=== PATIENT | female | born 1980 | race Caucasian/White ===

== ENCOUNTER 2022-09-10 14:11 | Emergency (ER) | payer BC, OTHER ==
[2022-09-10] MEDS ORDERED: HYDROCODONE/APAP 5/325 MG TAB ONE (14:39)
--- NOTE | 2022-09-10 15:36 | RAD REPORT ---
EXAM DESCRIPTION: RAD - Foot Right 3 View - 09/10/2022 3:13 pm CLINICAL HISTORY: PAIN COMPARISON: No comparisons FINDINGS/IMPRESSION: No acute fracture. No malalignment. No significant focal degenerative changes.
--- NOTE | 2022-09-10 15:39 | EDPHYS ---
Physician Documentation [facility] Name: Angelica Richards Age: 41 yrs Sex: Female : 1980 Arrival Date: 09/10/2022 Time: 14:13 Bed 23 Private MD: ED Physician Taj Turner HPI: 09/10 14:31 This 41 yrs old Female presents to ER via Wheelchair with complaints of Foot Pain. kb 14:32 The patient presents with decreased range of motion, pain, swelling, tenderness. The kb complaints affect the right foot. Context: The problem was sustained at home, resulted from twisted while surfing, the patient can partially bear weight, must have assistance. Onset: The symptoms/episode began/occurred just prior to arrival. Modifying factors: The symptoms are alleviated by nothing, the symptoms are aggravated by weight bearing, movement. Associated signs and symptoms: Pertinent positives: swelling, Pertinent negatives: calf tenderness, fever, nausea, numbness, rash, tingling, vomiting, warmth, weakness. Severity of symptoms: At their worst the symptoms were moderate, in the emergency department the symptoms are unchanged. The patient has not experienced similar symptoms in the past. The patient has not recently seen a physician. Pt reports her foot was stuck to her surfboard that got caught by the wind causing it to twist her foot. c/o pain to right foot. Historical: - Allergies: 14:22 No Known Allergies; kb3 - Home Meds: 14:22 None [Active]; kb3 - PMHx: 14:22 None; kb3 - PSHx: 14:22 None; kb3 - Immunization history:: Adult Immunizations up to date, Client reports receiving the 2nd dose of the Covid vaccine, Last tetanus immunization: up to date. - Social history:: Smoking status: Patient denies any tobacco usage or history of. ROS: 14:30 Constitutional: Negative for fever, chills, and weight loss. kb 14:30 MS/extremity: Positive for pain, of the dorsum of right foot. 14:30 All other systems are negative. Exam: 14:30 Constitutional: This is a well developed, well nourished patient who is awake, alert, kb and in no acute distress. Head/Face: Normocephalic, atraumatic. ENT: Moist Mucous membranes Cardiovascular: Regular rate and rhythm with a normal S1 and S2. No gallops, murmurs, or rubs. No pulse deficits. Respiratory: Respirations even and unlabored. No increased work of breathing. Talking in full sentences Skin: Warm, dry with normal turgor. Normal color. Neuro: Awake and alert, GCS 15, oriented to person, place, time, and situation. Moves all extremities. Normal gait. 14:30 Musculoskeletal/extremity: Extremities: grossly normal except: noted in the dorsum of right foot: decreased ROM, pain, swelling, tenderness, ROM: limited active range of motion due to pain, Circulation is intact in all extremities. Sensation intact. Weight bearing: can bear weight with assistance only. Vital Signs: 14:17 BP 113 / 73; Pulse 92; Resp 20; Temp 98.9; Pulse Ox 100% ; Weight 57.61 kg; Height 5 kb3 ft. 4 in. (162.56 cm); Pain 10/10; 15:14 BP 114 / 72; Pulse 82; Resp 16; Pulse Ox 100% on R/A; tp1 14:17 Body Mass Index 21.80 (57.61 kg, 162.56 cm) kb3 MDM: 14:14 Patient medically screened. kb 14:30 Data reviewed: vital signs, nurses notes. Data interpreted: Pulse oximetry: on room air kb is 100 %. Interpretation: normal. 15:37 Counseling: I had a detailed discussion with the patient and/or guardian regarding: the kb historical points, exam findings, and any diagnostic results supporting the discharge/admit diagnosis, radiology results, the need for outpatient follow up, a orthopedic surgeon, to return to the emergency department if symptoms worsen or persist or if there are any questions or concerns that arise at home. 09/10 14:18 Order name: Foot Right 3 View XRAY; Complete Time: 15:37 kb 09/10 15:38 Order name: Kp Wrap; Complete Time: 15:55 kb 09/10 15:38 Order name: Crutch Training; Complete Time: 15:55 kb Administered Medications: 14:39 Drug: HYDROcodone-acetaminophen 5 mg-325 mg 1 tabs Route: PO; tp1 15:13 Follow up: Response: Pain is decreased tp1 Disposition: 15:17 Co-signature as Attending Physician, Taj Turner DO I was immediately available on-site ms3 in the Emergency Department for consultation in the care of the patient. Disposition Summary: 09/10/22 15:38 Discharge Ordered Location: Home kb Condition: Stable kb Diagnosis - Sprain of foot kb Followup: kb - With: Emergency Department - When: As needed - Reason: Worsening of condition Followup: kb - With: Private Physician - When: 2 - 3 days - Reason: Recheck today's complaints, Continuance of care, Re-evaluation by your physician Discharge Instructions: - Discharge Summary Sheet kb - Foot Sprain kb Forms: - Medication Reconciliation Form kb - Thank You Letter kb - Antibiotic Education kb - Prescription Opioid Use kb Prescriptions: - Diclofenac Sodium 75 mg Oral tablet,delayed release (DR/EC) - take 1 tablet by ORAL route 2 times per day As needed; 30 tablet; Refills: 0, kb Product Selection Permitted Signatures: Dispatcher [employer] EDMS Odalis Kraus, DUC SQL DATABASE PROGRAMMER-Taj Barrera DO DO ms3 Ivette Severino, RN RN tp1 Jayleen Herrera RN RN kb3
--- NOTE | 2022-09-10 15:39 | ER ---
Nurse's Notes [facility] Name: Angelica Richards Age: 41 yrs Sex: Female : 1980 Arrival Date: 09/10/2022 Time: 14:13 Bed 23 Private MD: Diagnosis: Sprain of foot Presentation: 09/10 14:17 Chief complaint: Patient states: She was surfing and she fell off her board and felt a kb3 pop in the top of her right foot. Coronavirus screen: Vaccine status: Patient reports receiving the 2nd dose of the covid vaccine. Client denies travel out of the [place] in the last 14 days. Ebola Screen: Patient negative for fever greater than or equal to 101.5 degrees Fahrenheit, and additional compatible Ebola Virus Disease symptoms Patient denies exposure to infectious person. Patient denies travel to an Ebola-affected area in the 21 days before illness onset. Initial Sepsis Screen: Does the patient meet any 2 criteria? No. Patient's initial sepsis screen is negative. Does the patient have a suspected source of infection? No. Patient's initial sepsis screen is negative. Risk Assessment: Do you want to hurt yourself or someone else? Patient reports no desire to harm self or others. Onset of symptoms was September 10, 2022 at 13:00. 14:17 Method Of Arrival: Wheelchair kb3 14:17 Acuity: RUBEN 4 kb3 Triage Assessment: 14:22 General: Appears in no apparent distress. uncomfortable, Behavior is calm, cooperative. kb3 Pain: Complains of pain in left Achilles, left lateral malleolus, left medial malleolus, instep of left foot and dorsum of left foot Pain does not radiate. Pain currently is 10 out of 10 on a pain scale. Quality of pain is described as aching. Historical: - Allergies: 14:22 No Known Allergies; kb3 - Home Meds: 14:22 None [Active]; kb3 - PMHx: 14:22 None; kb3 - PSHx: 14:22 None; kb3 - Immunization history:: Adult Immunizations up to date, Client reports receiving the 2nd dose of the Covid vaccine, Last tetanus immunization: up to date. - Social history:: Smoking status: Patient denies any tobacco usage or history of. Screenin:31 Abuse screen: Denies threats or abuse. Denies injuries from another. Nutritional tp1 screening: No deficits noted. Tuberculosis screening: No symptoms or risk factors identified. Fall Risk No fall in past 12 months (0 pts). No secondary diagnosis (0 pts). No IV (0 pts). Ambulatory Aid- None/Bed Rest/Nurse Assist (0 pts). Gait- Impaired (20 pts.). Mental Status- Oriented to own ability (0 pts). Total [place] Fall Scale indicates No Risk (0-24 pts). Assessment: 14:31 General: Appears in no apparent distress. uncomfortable, Behavior is calm, cooperative. tp1 Pain: Complains of pain in right foot Pain does not radiate. Pain currently is 7 out of 10 on a pain scale. at worst was 8 out of 10 on a pain scale. Quality of pain is described as sharp, Pain began 1 hour ago. Is continuous. Neuro: Level of Consciousness is awake, alert, obeys commands, Oriented to person, place, time, situation. Cardiovascular: Capillary refill < 3 seconds in right toes Patient's skin is warm and dry. Respiratory: Airway is patent Respiratory effort is even, unlabored. GI: No signs and/or symptoms were reported involving the gastrointestinal system. : No signs and/or symptoms were reported regarding the genitourinary system. EENT: No signs and/or symptoms were reported regarding the EENT system. Derm: Skin is pink, warm \T\ dry. right leg and foot appear warm. right toes appear cool and pale. Musculoskeletal: Bony deformity noted of right foot Swelling present in right ankle limited wilson of motion in right toes, Unable to move right big toe. Reports tingling to right big toe. 15:13 Reassessment: Patient appears in no apparent distress at this time. No changes from tp1 previously documented assessment. Patient and/or family updated on plan of care and expected duration. Pain level reassessed. Patient is alert, oriented x 3, equal unlabored respirations, skin warm/dry/pink. rates pain 3/10. 15:50 Reassessment: contacted house sup for crutches. tp1 Vital Signs: 14:17 BP 113 / 73; Pulse 92; Resp 20; Temp 98.9; Pulse Ox 100% ; Weight 57.61 kg; Height 5 kb3 ft. 4 in. (162.56 cm); Pain 10/10; 15:14 BP 114 / 72; Pulse 82; Resp 16; Pulse Ox 100% on R/A; tp1 14:17 Body Mass Index 21.80 (57.61 kg, 162.56 cm) kb3 ED Course: 14:13 Patient arrived in ED. as 14:14 Odalis Kraus FNP-C [facility]. kb 14:14 Taj Turner DO is Attending Physician. kb 14:22 Triage completed. kb3 14:22 Arm band placed on right wrist. Patient placed in an exam room, on a stretcher. kb3 14:31 Ivette Severino, RN is Primary Nurse. tp1 14:31 Patient has correct armband on for positive identification. Bed in low position. Call tp1 light in reach. Adult w/ patient. Pulse ox on. NIBP on. 14:31 No provider procedures requiring assistance completed. tp1 15:14 Foot Right 3 View XRAY In Process Unspecified. EDMS 16:04 Crutch training done. Kp wrap to right foot. mm9 16:08 Patient did not have IV access during this emergency room visit. tp1 Administered Medications: 14:39 Drug: HYDROcodone-acetaminophen 5 mg-325 mg 1 tabs Route: PO; tp1 15:13 Follow up: Response: Pain is decreased tp1 Medication: 14:39 VIS not applicable for this client. tp1 Outcome: 15:38 Discharge ordered by MD. kb 16:08 Discharged to home ambulatory. tp1 16:08 Condition: good 16:08 Discharge instructions given to patient, Instructed on discharge instructions, follow up and referral plans. medication usage, Demonstrated understanding of instructions, follow-up care, medications, Prescriptions given X 1. 16:08 Patient left the ED. tp1 Signatures: Dispatcher [employer] EDWI Odalis Kraus FNP-C FNP-Ckb Martinez, Amelia as Ivette Severino, RN RN tp1 Jayleen Herrera RN RN kb3 Elda Bonds mm9
[2022-09-10 16:24] VITALS: TEMP 98.9; O2SAT 100
[2022-09-10 16:25] VITALS: BP 114/72
== END 2022-09-10 16:08 | disposition home or self-care (01) ==
LOC: ER 14:11
DX: S93.601A Unspecified sprain of right foot, initial encounter (principal)
CPT/HCPCS: 99284